=== PATIENT | female | born 1970 | race Caucasian/White ===

== ENCOUNTER 2019-01-25 23:02 | Emergency (ER) | payer BC, OTHER ==
[2019-01-26] MEDS: HYDROCODONE/APAP (5/325) TAB PO (02:22)
== END 2019-01-26 05:10 | disposition home or self-care (01) ==
LOC: FTE 23:02
DX: S09.90XA Unspecified injury of head, initial encounter (principal); S79.911A Unspecified injury of right hip, initial encounter; S79.912A Unspecified injury of left hip, initial encounter; R51 Headache; W06.XXXA Fall from bed, initial encounter; Y92.89 Other specified places as the place of occurrence of the external cause
CPT/HCPCS: 70450; 72170; 73520; 73521; 73550; 73552; 81025; 99284-25